=== PATIENT | female | born 1970 | race Two or more races ===

== ENCOUNTER 2023-03-06 07:07 | Inpatient (IN) | payer BC, OTHER ==
[~2023-03-06] VITALS: Ht 157.5 cm; Wt 76.0 kg
[~2023-03-06 07:07] MED LIST: PANT40TA2 PO; SERT50TA PO; SIMV-268 PO
[2023-03-06] MEDS ORDERED: VANCOMYCIN HCL 1000 MG VL ONE ×2 (07:20→07:58)
[2023-03-06] MEDS ORDERED: DexAMETHasone SOD PHOS 4 MG/1ML SDV INJ ONE (07:44)
[2023-03-06] MEDS ORDERED: EPINEPHrine HCL 1 MG/1 ML AMP ONE (07:44)
[2023-03-06] MEDS ORDERED: ACETAMINOPHEN IV 1000 MG/100ML (10MG/ML) IV ONE (07:45)
[2023-03-06] MEDS ORDERED: CELECOXIB 100 MG CAP PO ONE (07:45)
[2023-03-06] MEDS ORDERED: PREGABALIN CAPSULE 75 MG CAP PO ONE (07:45)
[2023-03-06] MEDS ORDERED: TRANEXAMIC ACID 20 ML ONE (07:54)
[2023-03-06] MEDS ORDERED: KETOROLAC TROMETH 30 MG/ML 1ML VIAL ONE ×2 (07:59→08:36)
[2023-03-06] MEDS ORDERED: ONDANSETRON HCL 4 MG/2 ML VIAL ONE (07:59)
[2023-03-06] MEDS ORDERED: DexAMETHasone SOD PHOS 10MG/1ML VIAL INJ ONE (07:59)
[2023-03-06] MEDS ORDERED: LIDOCAINE 1% INJ PF 5ML AMP ONE (07:59)
[2023-03-06] MEDS ORDERED: PROPOFOL 10 MG/ML 20 ML IV ONE ×4 (07:59→10:39)
[2023-03-06] MEDS ORDERED: PREGABALIN CAPSULE 75 MG CAP ONE (08:01)
[2023-03-06] MEDS ORDERED: SODIUM CHLORIDE LOCK 20 ML ONE (08:03)
[2023-03-06] MEDS ORDERED: BUPIVACAINE HCL 50 ML ONE (08:31)
[2023-03-06] MEDS ORDERED: MORPHINE SULF PF 5 MG/10 ML VIAL ONE (08:36)
[2023-03-06] MEDS ORDERED: ceFAZolin 1GM VL ONE (08:50)
[2023-03-06] MEDS ORDERED: ACETAMINOPHEN 325 MG TAB PO PRN (09:30)
[2023-03-06] MEDS ORDERED: NITROGLYCERIN 0.4 MG SL TAB SL PRN (09:30)
[2023-03-06] MEDS ORDERED: MORPHINE SULFATE INJ 2 MG/ml SYRG IV PRN (09:30)
[2023-03-06] MEDS ORDERED: HYDROmorphone HCL 2 MG/ML VL/or syr IV PRN ×3 (09:30→13:30)
[2023-03-06] MEDS ORDERED: ceFAZolin 1GM/50ML 50 ML IV SCH (09:30)
[2023-03-06] MEDS ORDERED: ONDANSETRON HCL 4 MG/2 ML VIAL IV PRN ×2 (09:30→11:45)
[2023-03-06] MEDS: PANTOPRAZOLE 40 MG TAB PO SCH (10:00)
[2023-03-06] MEDS: ATORVASTATIN 20 MG TAB PO SCH (10:00)
[2023-03-06] MEDS: SERTRALINE HCL 50 MG TAB PO SCH (10:00)
[2023-03-06] MEDS: DOCUSATE SOD 100 MG CAP PO SCH ×2 (10:00→22:25)
[2023-03-06] MEDS: ENOXAPARIN SOD 40 MG/0.4 ML SYRINGE SC SCH (10:00)
[2023-03-06 11:15] VITALS: O2SAT 100
[2023-03-06] MEDS ORDERED: NALOXONE HCL 0.4 MG/ML VIAL IV PRN (11:45)
[2023-03-06] MEDS ORDERED: hydrALAZINE HCL 20 MG/ML VL IV PRN (11:45)
[2023-03-06] MEDS ORDERED: fentaNYL CITRATE 100 MCG/2 ML VL IV PRN (11:45)
[2023-03-06] MEDS ORDERED: FLUMAZENIL 0.1 MG/ML INJ 10ML MDV IV PRN (11:45)
[2023-03-06] MEDS ORDERED: oxyCODONE HCL 5MG TAB PO PRN (11:45)
[2023-03-06] MEDS ORDERED: LABETALOL HCL 5 MG/ML 4ML SYRINGE IV PRN (11:45)
[2023-03-06] MEDS ORDERED: ePHEDrine SULFATE 50 MG/ML AMP IV PRN (11:45)
[2023-03-06] MEDS: LACTATED RINGER'S 1,000 ML IV SCH ×2 (12:00→22:28)
[2023-03-06] MEDS: ceFAZolin 1GM/50ML 50 ML IV SCH ×2 (14:00→22:27)
[2023-03-06] MEDS: SODIUM CHLOR 0.9% PF (SALINE LOCK) 10ML VIAL/SYR IV SCH ×2 (14:00→22:28)
[2023-03-06 17:40] VITALS: O2SAT 98
[2023-03-06 20:00] VITALS: PULSE 66; RESP 17; O2SAT 91
[2023-03-06 22:00] VITALS: BP 94/52; PULSE 66; RESP 17; TEMP 98.7; O2SAT 91
[2023-03-07] MEDS: ceFAZolin 1GM/50ML 50 ML IV SCH (02:21)
[2023-03-07 05:00] VITALS: BP 92/51; PULSE 54; RESP 16; TEMP 98.3; O2SAT 94
[2023-03-07] MEDS: SODIUM CHLOR 0.9% PF (SALINE LOCK) 10ML VIAL/SYR IV SCH ×3 (06:00→22:00)
[2023-03-07] MEDS: LACTATED RINGER'S 1,000 ML IV SCH ×2 (06:56→18:34)
[2023-03-07 07:01] LABS: Basophils # (auto) 0 10 ^3/uL (0-0.2); Basophils % (auto) 0.1 % (0.0-2.0); Eosinophils # (auto) 0 10 ^3/uL (0-0.8); Hematocrit 30.4 % (36.0-46.0); Lymphocytes # (auto) 1.3 10 ^3/uL (0.4-5.4); Lymphocytes % (auto) 9.7 % (10.0-50.0); Mean Corpuscular Hemoglobin 32.2 pg (28.0-32.0); Mean Corpuscular Hgb Conc. 32.8 g/dL (32.0-36.0); Mean Corpuscular Volume 98.1 fL (80.0-100.0); Monocytes % (auto) 7.5 % (0.0-12.0); Neutrophils # (auto) 11.4 10 ^3/uL (1.6-8.6); Neutrophils % (auto) 82.7 % (37.0-80.0); Red Cell Distribution Width 12.8 % (11.8-14.3); White Blood Cell 13.7 10^3/uL (4.4-10.8)
[2023-03-07 07:07] LABS: Alanine Aminotransferase 18 U/L (7-40); Albumin 3.3 g/dL (3.2-4.8); Alkaline Phosphatase 49 U/L (46-116); Anion Gap 7 (5-15); Aspartate Aminotransferase 41 U/L (13-40); BUN/Creatinine Ratio 9.9 (10.0-20.0); Bilirubin, Total 0.7 mg/dL (0.2-1.0); Blood Urea Nitrogen 7 mg/dL (9-23); Calcium 8.1 mg/dL (8.7-10.4); Carbon Dioxide 25 mmol/L (20-30); Chloride 106 mmol/L (98-107); Glucose 103 mg/dL (74-106); Sodium 138 mmol/L (136-145); Total Protein 5.1 g/dL (5.7-8.2)
[2023-03-07 09:00] VITALS: BP 103/61; PULSE 59; RESP 17; TEMP 98.3; O2SAT 98
[2023-03-07] MEDS: ENOXAPARIN SOD 40 MG/0.4 ML SYRINGE SC SCH (10:08)
[2023-03-07] MEDS: DOCUSATE SOD 100 MG CAP PO SCH ×2 (10:08→22:04)
[2023-03-07] MEDS: PANTOPRAZOLE 40 MG TAB PO SCH (10:08)
[2023-03-07] MEDS: ATORVASTATIN 20 MG TAB PO SCH (10:08)
[2023-03-07] MEDS: SERTRALINE HCL 50 MG TAB PO SCH (10:08)
[2023-03-07 13:00] VITALS: BP 103/64; PULSE 59; RESP 17; TEMP 98.1; O2SAT 96
[2023-03-07] MEDS: HYDROcodone-ACET 5/325MG TAB PO PRN ×2 (13:51→22:03)
[2023-03-07 17:00] VITALS: BP 105/69; PULSE 59; RESP 18; TEMP 97.7; O2SAT 95
[2023-03-07 20:00] VITALS: PULSE 57; RESP 17; O2SAT 96
[2023-03-07 22:00] VITALS: BP 95/55; PULSE 57; RESP 17; TEMP 98; O2SAT 96
[2023-03-08] MEDS: HYDROcodone-ACET 5/325MG TAB PO PRN ×2 (03:31→15:54)
[2023-03-08 05:00] VITALS: BP 88/53; PULSE 57; RESP 16; TEMP 98.3; O2SAT 96
[2023-03-08] MEDS: LACTATED RINGER'S 1,000 ML IV SCH (06:44)
[2023-03-08] MEDS: SODIUM CHLOR 0.9% PF (SALINE LOCK) 10ML VIAL/SYR IV SCH ×2 (06:45→15:20)
[2023-03-08 09:00] VITALS: BP 133/63; PULSE 64; RESP 16; TEMP 98.1; O2SAT 97
[2023-03-08 09:07] LABS: Basophils # (auto) 0 10 ^3/uL (0-0.2); Basophils % (auto) 0.4 % (0.0-2.0); Eosinophils # (auto) 0 10 ^3/uL (0-0.8); Eosinophils % (auto) 0.4 % (0.0-7.0); Hemoglobin 9.7 g/dL (12.2-16.2); Lymphocytes # (auto) 1.9 10 ^3/uL (0.4-5.4); Lymphocytes % (auto) 22.1 % (10.0-50.0); Mean Corpuscular Hemoglobin 32.9 pg (28.0-32.0); Mean Corpuscular Hgb Conc. 33.5 g/dL (32.0-36.0); Mean Corpuscular Volume 98.2 fL (80.0-100.0); Monocytes # (auto) 0.5 10 ^3/uL (0-1.3); Monocytes % (auto) 5.9 % (0.0-12.0); Neutrophils % (auto) 71.2 % (37.0-80.0); Nucleated Red Blood Cells % 0.1 %; Red Blood Cells 2.95 10^6/uL (4.0-5.20); Red Cell Distribution Width 12.9 % (11.8-14.3); White Blood Cell 8.4 10^3/uL (4.4-10.8)
[2023-03-08] MEDS: SERTRALINE HCL 50 MG TAB PO SCH (09:20)
[2023-03-08] MEDS: DOCUSATE SOD 100 MG CAP PO SCH (09:20)
[2023-03-08] MEDS: PANTOPRAZOLE 40 MG TAB PO SCH (09:20)
[2023-03-08] MEDS: ENOXAPARIN SOD 40 MG/0.4 ML SYRINGE SC SCH (09:21)
[2023-03-08 09:27] LABS: Calcium 8.2 mg/dL (8.5-10.1); Chloride 106 mmol/L (98-107); Potassium 3.5 mmol/L (3.5-5.1); Sodium 140 mmol/L (136-145)
[2023-03-08 09:28] LABS: Anion Gap 6 (5-15); Carbon Dioxide 28 mmol/L (20-30)
[2023-03-08 09:33] LABS: BUN/Creatinine Ratio 11.5 (10.0-20.0); Blood Urea Nitrogen 7 mg/dL (9-23); Glucose 118 mg/dL (74-106)
[2023-03-08] MEDS: ATORVASTATIN 20 MG TAB PO SCH (09:36)
[2023-03-08 13:00] VITALS: BP 96/60; PULSE 74; RESP 18; TEMP 98.2; O2SAT 97
[2023-03-08] MEDS ORDERED: diphenhdrAMINE HCL 25 MG CAP PO ONE (16:15)
[2023-03-08 17:16] VITALS: BP 99/58; PULSE 69; RESP 18; TEMP 98; O2SAT 96
== END 2023-03-08 17:35 | disposition home health service (06) | DRG 470 ==
LOC: SUR 07:07 → OVERFLOW 09:27 → CENTRAL 17:12
PROVIDERS: ADMIT Orthopaedic Surgery Adult Reconstructive Orthopaedic Surgery; ATTEND Internal Medicine
PROC: 0SR906Z Replacement of Right Hip Joint with Oxidized Zirconium on Polyethylene Synthetic Substitute, Open Approach (ICD-10-PCS; principal; 2023-03-06 08:09)
DX: M16.11 Unilateral primary osteoarthritis, right hip (principal); F32.A Depression, unspecified; I10 Essential (primary) hypertension; K21.9 Gastro-esophageal reflux disease without esophagitis; E78.5 Hyperlipidemia, unspecified; Z91.048 Other nonmedicinal substance allergy status; Z88.0 Allergy status to penicillin
CPT/HCPCS: 36415; 72170; 73502; 76000; 80048; 80053; 85025; 86850; 86900; 86901; 97110; 97116; 97163; 97530; A4565; G0378; J0131; J0171; J0690; J1100; J1885; J2405; J2704; J3490